=== PATIENT | female | born 1995 | race American Indian/Alaskan Native ===

== ENCOUNTER 2017-07-14 22:21 | Emergency (ER) | payer MEDICAID ==
[2017-07-15] MEDS ORDERED: NORCO 10/325 PO ONE (00:09)
--- NOTE | 2017-07-15 00:53 | Cat Scan Report ---
FINAL REPORT PROCEDURE: CT HEAD/BRAIN WO CON TECHNIQUE: Computerized tomography of the head was performed without contrast material. HISTORY: seizure with fall COMPARISON: 11/15/2014 FINDINGS: Skull and scalp: Normal. Paranasal sinuses: Normal. Ventricles and subarachnoid spaces: Normal. Cerebrum: No evidence of hemorrhage, acute infarction or mass . Cerebellum and brainstem: No evidence of hemorrhage, acute infarction or mass. Vasculature: Normal. Comments: None. IMPRESSION: There is no evidence of an acute intracranial process
[2017-07-15 01:15] LABS: Alanine Aminotransferase 9 units/L (7-56); Albumin 3.6 g/dL (3.9-5); Alkaline Phosphatase 70 units/L (35-129); Anion Gap 17 mmol/L; BUN/Creatinine Ratio 17.14; Blood Urea Nitrogen 12 mg/dL (7-17); Carbon Dioxide 23 mmol/L (22-30); Chloride 103.7 mmol/L (98-107); Glucose 91 mg/dL (65-100); Potassium 3.9 mmol/L (3.6-5.0); Sodium 140 mmol/L (137-145); Total Protein 7.1 g/dL (6.3-8.2)
[2017-07-15 01:16] LABS: Basophils % (Auto) 0.4 % (0.0-1.8); Hematocrit 38.7 % (30.3-42.9); Mean Corpuscular HGB Conc 34 % (30-34); Mean Corpuscular Hemoglobin 30 pg (28-32); Mean Corpuscular Volume 88 fl (79-97); Platelet Count 258 K/mm3 (140-440); Red Blood Count 4.42 M/mm3 (3.65-5.03); Red Cell Distribution Width 13.5 % (13.2-15.2); White Blood Count 9.6 K/mm3 (4.5-11.0)
[2017-07-15 02:48] LABS: Bacteria,Urine 1+ /HPF (Negative); Bilirubin,Urine NEG (Negative); Blood,Urine NEG (Negative); Ketones,Urine NEG (Negative); Leukocyte Esterase,Urine SM (Negative); Mucus,Urine FEW /HPF; Nitrite,Urine NEG (Negative); Protein,Urine <15 mg/dL mg/dL (Negative)
[2017-07-15 03:10] VITALS: BP 116/73
--- NOTE | 2017-07-15 03:17 | Emergency Department Report ---
ED General Adult HPI - General Chief complaint: Seizure Stated complaint: SEIZURE Time Seen by Provider: 07/15/17 00:03 Source: EMS Mode of arrival: Stretcher Limitations: No Limitations - History of Present Illness Initial comments: Patient is a 22-year-old female past medical history of epilepsy who presents status post seizure. Patient is not post ictal she states she had her seizure about one hour prior to arrival. She is complaining of head pain so in the middle for forehead that is a 7 out of 10. It radiates throughout her forehead. It is an achy throbbing type pain. Nothing makes it better or worse. Patient is on Vimpat for her seizures and she has been on it for "a while" patient's here because she had a fall and hit her head. And she wants to make sure it's not serious. Severity scale (0 -10): 9 - Related Data Home Medications Medication Instructions Recorded Confirmed Last Taken Folic Acid [Folvite] 1 mg PO HS 12/29/13 11/15/14 11/14/14 21:00 medroxyPROGESTERone ACETATE 150 mg IM [id number] 12/29/13 11/15/14 12/22/13 [Depo-Provera (Contraception)] Previous Rx's Medication Instructions Recorded Last Taken Type levETIRAcetam [Keppra] 1,000 mg PO BID #60 tablet 11/16/14 Unknown Rx Allergies Allergy/AdvReac Type Severity Reaction Status Date / Time No Known Allergies Allergy Verified 07/14/17 22:41 ED Review of Systems ROS: Stated complaint: SEIZURE Other details as noted in HPI Constitutional: denies: chills, fever Eyes: denies: eye pain, eye discharge, vision change ENT: denies: ear pain, throat pain Respiratory: denies: cough, shortness of breath, wheezing Cardiovascular: denies: chest pain, palpitations Endocrine: no symptoms reported Gastrointestinal: denies: abdominal pain, nausea, diarrhea Genitourinary: denies: urgency, dysuria, discharge Musculoskeletal: denies: back pain, joint swelling, arthralgia Skin: denies: rash, lesions Neurological: headache, other (seizure). denies: weakness, paresthesias Psychiatric: denies: anxiety, depression Hematological/Lymphatic: denies: easy bleeding, easy bruising ED Past Medical Hx - Past Medical History Previous Medical History?: Yes Hx Seizures: Yes Hx Psychiatric Treatment: Yes (05/2013 - [facility]) - Surgical History Past Surgical History?: Yes - Social History Smoking Status: Current Every Day Smoker Substance Use Type: Alcohol, Marijuana - Medications Home Medications: Home Medications Medication Instructions Recorded Confirmed Last Taken Type Folic Acid [Folvite] 1 mg PO HS 12/29/13 11/15/14 11/14/14 21:00 History medroxyPROGESTERone ACETATE 150 mg IM [id number] 12/29/13 11/15/14 12/22/13 History [Depo-Provera (Contraception)] levETIRAcetam [Keppra] 1,000 mg PO BID #60 tablet 11/16/14 Unknown Rx ED Physical Exam - General Limitations: No Limitations General appearance: alert - Head Head exam: Present: normocephalic, other (3x3 cm swelling on middle of forehead) - Eye Eye exam: Present: normal appearance, PERRL, EOMI - ENT ENT exam: Present: normal exam - Neck Neck exam: Present: normal inspection - Respiratory Respiratory exam: Present: normal lung sounds bilaterally - Cardiovascular Cardiovascular Exam: Present: regular rate - GI/Abdominal GI/Abdominal exam: Present: soft - Extremities Exam Extremities exam: Present: normal inspection - Back Exam Back exam: Present: normal inspection - Neurological Exam Neurological exam: Present: alert, oriented X3, CN II-XII intact, other ( swelling on middle of forehead) - Psychiatric Psychiatric exam: Present: normal affect, normal mood - Skin Skin exam: Present: warm, dry, intact, normal color. Absent: rash ED Course Vital Signs 07/14/17 07/15/17 22:41 03:09 Temperature 98.8 F Pulse Rate 63 65 Respiratory 18 17 Rate Blood Pressure 113/73 Blood Pressure 116/73 [Left] O2 Sat by Pulse 99 99 Oximetry - Reevaluation(s) Reevaluation #1: 07/15/17 03:17 Patient is alert and oriented she has no metabolic abnormality and CT head is negative ED Medical Decision Making - Lab Data Result diagrams: 07/15/17 00:38 07/15/17 00:38 Labs 07/15/17 07/15/17 07/15/17 00:38 00:38 00:38 WBC 9.6 RBC 4.42 Hgb 13.0 Hct 38.7 MCV 88 MCH 30 MCHC 34 RDW 13.5 Plt Count 258 Lymph % (Auto) 26.4 Kaufman % (Auto) 7.8 H Eos % (Auto) 1.0 Baso % (Auto) 0.4 Lymph # 2.5 Kaufman # 0.7 Eos # 0.1 Baso # 0.0 Seg Neutrophils % 64.4 Seg Neutrophils # 6.2 Sodium 140 Potassium 3.9 Chloride 103.7 Carbon Dioxide 23 Anion Gap 17 BUN 12 Creatinine 0.7 Estimated GFR > 60 BUN/Creatinine Ratio 17.14 Glucose 91 Calcium 9.0 Total Bilirubin 0.30 AST 15 ALT 9 Alkaline Phosphatase 70 Total Protein 7.1 Albumin 3.6 L Albumin/Globulin Ratio 1.0 Urine Color Urine Turbidity Urine pH Ur Specific [place] Urine Protein Urine Glucose (UA) Urine Ketones Urine Blood Urine Nitrite Urine Bilirubin Urine Urobilinogen Ur Leukocyte Esterase Urine WBC (Auto) Urine RBC (Auto) U Epithel Cells (Auto) Urine Bacteria (Auto) Urine Mucus Plasma/Serum Alcohol < 0.01 07/15/17 01:52 WBC RBC Hgb Hct MCV MCH MCHC RDW Plt Count Lymph % (Auto) Kaufman % (Auto) Eos % (Auto) Baso % (Auto) Lymph # Kaufman # Eos # Baso # Seg Neutrophils % Seg Neutrophils # Sodium Potassium Chloride Carbon Dioxide Anion Gap BUN Creatinine Estimated GFR BUN/Creatinine Ratio Glucose Calcium Total Bilirubin AST ALT Alkaline Phosphatase Total Protein Albumin Albumin/Globulin Ratio Urine Color Yellow Urine Turbidity Clear Urine pH 7.0 Ur Specific [place] 1.024 Urine Protein <15 mg/dl Urine Glucose (UA) Neg Urine Ketones Neg Urine Blood Neg Urine Nitrite Neg Urine Bilirubin Neg Urine Urobilinogen 4.0 Ur Leukocyte Esterase Sm Urine WBC (Auto) 6.0 Urine RBC (Auto) 3.0 U Epithel Cells (Auto) 7.0 Urine Bacteria (Auto) 1+ Urine Mucus Few Plasma/Serum Alcohol - Radiology Data Radiology results: report reviewed, image reviewed CT head: shows no acute intracranial abnormality - Medical Decision Making Chief medical diagnosis: Seizure secondary to epilepsy Differential medical diagnosis: Hypoglycemia, hyponatremia, brain bleed I will get CBC, CMP, urine , I'll give pt pain control and I will give patient a head CT to evaluate for any bleexd Critical care attestation.: If time is entered above; I have spent that time in minutes in the direct care of this critically ill patient, excluding procedure time. ED Disposition Clinical Impression: Seizure Forehead contusion Qualifiers: Encounter type: initial encounter Qualified Code(s): S00.83XA - Contusion of other part of head, initial encounter Headache Qualifiers: Headache type: post-traumatic Headache chronicity pattern: acute headache Intractability: not intractable Qualified Code(s): G44.319 - Acute post- traumatic headache, not intractable Disposition: DC- TO HOME OR SELFCARE Is pt being admited?: No Does the pt Need Aspirin: No Condition: Stable Instructions: Women and Epilepsy (ED) Additional Instructions: Please follow-up with your neurologist and asked him/her about your seizures. Referrals: PRIMARY CARE, [Primary Care Provider] - 3-5 Days Time of Disposition: 03:23
== END 2017-07-15 03:50 | disposition home or self-care (01) ==
LOC: ED 22:21
DX: S00.83XA Contusion of other part of head, initial encounter (principal); R56.9 Unspecified convulsions; F17.210 Nicotine dependence, cigarettes, uncomplicated; F12.10 Cannabis abuse, uncomplicated; W18.30XA Fall on same level, unspecified, initial encounter; Y93.89 Activity, other specified; Y92.89 Other specified places as the place of occurrence of the external cause; Y99.8 Other external cause status
CPT/HCPCS: 36415; 70450; 80053; 81001; 85025; 99284; G0480; 80320